=== PATIENT | female | born 1960 | race Caucasian/White ===

== ENCOUNTER → 2019-07-20 | Outpatient (CLI) | payer OTHER ==
[2019-07-20 09:38] LABS: BASOPHILS ABSOLUTE AUTO 0.04 K/mm3 (0.00-0.23); BASOPHILS PERCENT AUTO 0 % (0-2); EOSINOPHILS ABSOLUTE AUTO 0.09 K/mm3 (0.00-0.68); EOSINOPHILS PERCENT AUTO 1 % (0-6); Hematocrit 47.9 % (33.0-51.0); Hemoglobin 15.6 g/dL (11.5-16.0); IMMATURE GRAN ABSOLUTE AUTO 0.03 K/mm3 (0.00-0.10); IMMATURE GRAN PERCENT AUTO 0 % (0-1); LYMPHOCYTES ABSOLUTE AUTO 1.35 K/mm3 (0.84-5.20); LYMPHOCYTES PERCENT AUTO 15 % (21-46); MONOCYTES ABSOLUTE AUTO 0.62 K/mm3 (0.16-1.47); MONOCYTES PERCENT AUTO 7 % (4-13); Mean Corpuscular HGB 28.7 pg (26.0-34.0); Mean Corpuscular HGB Conc 32.6 g/dL (31.5-36.5); Mean Corpuscular Volume 88 fL (80-100); Mean Platelet Volume 8.9 fL (9.1-12.4); NEUTROPHILS ABSOLUTE AUTO 7.14 K/mm3 (1.96-9.15); NEUTROPHILS PERCENT AUTO 77 % (41-73); Platelet Count 261 K/mm3 (150-400); RDW Coefficient Variation 12.9 % (11.7-14.2); RDW Standard Deviation 41.5 fL (35.1-46.3); Red Blood Cell Count 5.44 M/mm3 (3.80-5.20); White Blood Cell Count 9.27 K/mm3 (4.00-11.30)
[2019-07-20 09:59] LABS: Alanine Aminotransfer (ALT/SGP 30 U/L (12-78); Albumin, Blood 4.2 g/dL (3.4-5.0); Alk Phos 61 U/L (50-136); Anion Gap 7 mmol/L (6-16); Aspartate Aminotrans (AST/SGOT 17 U/L (12-37); Bilirubin, Total 0.6 mg/dL (0.1-1.0); Blood Urea Nitrogen 19 mg/dL (8-24); Bun/Creatinine Ratio 27.1 (12.0-20.0); CO2, Blood 23 mmol/L (21-32); Calcium, Blood 9.6 mg/dL (8.5-10.1); Chloride, Blood 108 mmol/L (98-108); Glomerular Filtration Rate >60 (60-); Glucose, Blood 128 mg/dL (70-99); Potassium, Blood 3.9 mmol/L (3.5-5.5); Sodium, Blood 138 mmol/L (136-145); Total Protein, Blood 8.2 g/dL (6.4-8.2)
== END | disposition home or self-care (01) ==
LOC: LAB SHORT 09:27 → LAB 09:27
PROVIDERS: Nurse Practitioner Family
DX: R10.84 Generalized abdominal pain (principal); R11.10 Vomiting, unspecified
CPT/HCPCS: 80053; 83690; 85025

== ENCOUNTER → 2024-06-13 | Outpatient (CLI) | payer OTHER ==
[~2024-06-13] MED LIST: ACET500; Calcium Carbon500 MG; Citrucel500 MG; MULVITA; POTASSIUM GLU2.5 MEQ; PROBIOTIC1 EA14; QUERCETIN500 MG; SIME40L; VITAMIN D310 MC4; Vitamin B-1250 MC1
== END ==
LOC: LAB SHORT 19:20 → LAB 19:20
DX: L08.9 Local infection of the skin and subcutaneous tissue, unspecified (principal)
CPT/HCPCS: 87070; 87205

== ENCOUNTER 2024-06-15 15:04 | Inpatient (IN) | payer OTHER ==
[~2024-06-15] VITALS: Ht 167.6 cm; Wt 91.0 kg
[~2024-06-15 15:04] MED LIST changes: -Calcium Carbon500 MG; +Calcium Carbon500 MG PO; -Citrucel500 MG; +Citrucel500 MG PO; -MULVITA; +MULVITA PO; -POTASSIUM GLU2.5 MEQ; +POTASSIUM GLU2.5 MEQ PO; -PROBIOTIC1 EA14; +PROBIOTIC1 EA14 PO; -QUERCETIN500 MG; +QUERCETIN500 MG PO; -SIME40L; +SIME40L PO; -VITAMIN D310 MC4; +VITAMIN D310 MC4 PO; -Vitamin B-1250 MC1; +Vitamin B-1250 MC1 PO
[2024-06-15 16:36] LABS: BASOPHILS ABSOLUTE AUTO 0.04 K/mm3 (0.00-0.23); BASOPHILS PERCENT AUTO 0 % (0-2); EOSINOPHILS ABSOLUTE AUTO 0.29 K/mm3 (0.00-0.68); EOSINOPHILS PERCENT AUTO 3 % (0-6); Hematocrit 43.6 % (33.0-51.0); Hemoglobin 14.7 g/dL (11.5-16.0); IMMATURE GRAN ABSOLUTE AUTO 0.03 K/mm3 (0.00-0.10); IMMATURE GRAN PERCENT AUTO 0 % (0-1); LYMPHOCYTES ABSOLUTE AUTO 1.46 K/mm3 (0.84-5.20); LYMPHOCYTES PERCENT AUTO 15 % (21-46); MONOCYTES ABSOLUTE AUTO 0.58 K/mm3 (0.16-1.47); MONOCYTES PERCENT AUTO 6 % (4-13); Mean Corpuscular HGB 29.8 pg (26.0-34.0); Mean Corpuscular HGB Conc 33.7 g/dL (31.5-36.5); Mean Corpuscular Volume 88 fL (80-100); Mean Platelet Volume 9.1 fL (9.1-12.4); NEUTROPHILS ABSOLUTE AUTO 7.37 K/mm3 (1.96-9.15); NEUTROPHILS PERCENT AUTO 76 % (41-73); Platelet Count 251 K/mm3 (150-400); RDW Coefficient Variation 12.9 % (11.7-14.2); Red Blood Cell Count 4.94 M/mm3 (3.80-5.20); White Blood Cell Count 9.77 K/mm3 (4.00-11.30)
[2024-06-15 17:04] LABS: C-REACTIVE PROTEIN, EXT RANGE 0.786 mg/dL (0.000-0.300)
[2024-06-15 17:07] LABS: Bun/Creatinine Ratio 19.3 (12.0-20.0); Calcium, Blood 9.4 mg/dL (8.5-10.1); Creatinine, Blood 0.78 mg/dL (0.40-1.00); Potassium, Blood 4.2 mmol/L (3.5-5.5)
[2024-06-15] MEDS ORDERED: Ondansetron HCl 2 MG / ML 2ML Vial IV ONE (20:50)
[2024-06-15] MEDS ORDERED: Morphine Sulfate 4 MG/1 ML Injection IV ONE (20:50)
[2024-06-15] MEDS ORDERED: OxyCODONE 5 mg/Acetamin 325 mg TABLET PO PRN (21:20)
[2024-06-15] MEDS ORDERED: Ondansetron HCl 2 MG / ML 2ML Vial IV PRN (21:20)
[2024-06-15] MEDS ORDERED: NS 1,000 ML IV SCH (21:25)
[2024-06-15] MEDS ORDERED: Cefepime HCl 2,000 MG in NS 100 ML IV SCH (21:43)
[2024-06-15] MEDS ORDERED: Vancomycin HCL 1,750 MG in NS 500 ML IV ONE (21:45)
[2024-06-15] MEDS ORDERED: HydrALAZINE HCl 25 MG Tab PO PRN (22:35)
[2024-06-15 22:54] VITALS: BP 144/81
[2024-06-16 04:14] VITALS: BP 122/90
--- NOTE | 2024-06-16 05:40 | NUR ---
ADMIT FROM ER @ 2250 ACCOMPAINED BY STAFF. ORIENTED TO ROOM AND CALL LIGHT SYSTEM. L THUMB OSTEOMYLITIS. IND PERFORMED IN ER ON L THUMB, WRAPED WITH GAUZE AND KERLIX. BLOOD AND WOUND DRAINAGE CULTURES PENDING. AAOX4, NEEDS HELP WITH IV POLE TO BR. INDEPENDENT IN BR. L THUMB IS PAINFUL, SEE MAR FOR INTERVENTIONS. NO ACUTE NEEDS OVERNIGHT
[2024-06-16 05:56] LABS: Bun/Creatinine Ratio 21.5 (12.0-20.0); Calcium, Blood 8.3 mg/dL (8.5-10.1); Creatinine, Blood 0.7 mg/dL (0.40-1.00); Potassium, Blood 4.3 mmol/L (3.5-5.5)
[2024-06-16 06:49] LABS: International Normalized Ratio 0.9; Prothrombin Time Results 9.7 Sec (9.7-11.5)
[2024-06-16 07:17] VITALS: BP 137/70
[2024-06-16] MEDS ORDERED: Enoxaparin 40 MG/0.4 ML SYR SC SCH (09:00)
[2024-06-16] MEDS ORDERED: Docusate Sodium 100 MG Cap PO SCH (09:00)
[2024-06-16] MEDS ORDERED: Docusate Sodium/Senna 1 Tab PO SCH (09:00)
[2024-06-16] MEDS ORDERED: Lactobacil 2-S.Thermo-Bifido 1 1 Cap PO SCH (09:00)
[2024-06-16] MEDS ORDERED: Vancomycin HCL 1,250 MG in NS 250 ML IV SCH (11:00)
[2024-06-16] MEDS ORDERED: Simethicone 80 MG Chew PO PRN (12:35)
[2024-06-16 17:32] VITALS: BP 189/81
--- NOTE | 2024-06-16 17:53 | NUR ---
SHIFT SUMMARY: PATIENT A/OX4, PLEASANT AND COOPERATIVE c CARE. PATIENT REPORTS PAIN TO L THUMB, MEDICATED PER EMAR T/O SHIFT c GOOD EFFECT. PATIENT L THUMB DRESSING CHANGED BY DR. BEACH THIS PM. PATIENT MEDICATED X1 FOR NAUSEA AND X1 FOR GAS DISCOMFORT c GOOD EFFECT. PATIENT HAS MOD APPETITE, CONTINENT OF BLADDER, AMBULATES TO BATHROOM INDEPENDENTLY T/O SHIFT. PATIENT AMBULATED IN HALLWAY X2 THIS SHIFT. PATIENT RECEIVED IV ABX/SCHEDULED MEDS PER EMAR. VITAL SIGNS REVIEWED. CALL LIGHT IN REACH.
[2024-06-16 18:13] VITALS: BP 168/95
[2024-06-16 19:32] VITALS: BP 160/87
--- NOTE | 2024-06-17 03:16 | NUR ---
SHIFT SUMMARY NO ACUTE EVENTS DURING THIS SHIFT. @BEGINNING OF THIS SHIFT, PT REPORTS VERY PAINFUL LEFT THUMB/HAND. PER PT REQUEST, MEDICATED Q4HRS WITH PRN PO 10MG PERCOCET ORDERED. GOOD EFFECTIVNESS PER PT REPORT. PT WAS EXPERIENCING BREAKTHROUGH PAIN, AND NOW CAUTIOUS/AFRAID OF IT. EDUCATED ON PAIN MANAGMENT AND NON-PHARMACOLOGICAL INTERVENTIONS. PT IS A/O X4, VERY PLEASANT AND COOPERATIVE WITH CARE. INDEPENDENT W/I THE HOSPITAL ROOM. DRESSING FOR LEFT THUMB WAS CHANGED BY YESTERDAY 06/16/24. C/D/I. BED AT THE LOWEST POSITION, CALL LIGHT W/I REACH. PT IS ABLE TO MAKE HER NEEDS KNOWN.
[2024-06-17 04:23] VITALS: BP 120/71
[2024-06-17 07:32] VITALS: BP 144/81
[2024-06-17] MEDS ORDERED: FentaNYL Citrate 50 MCG/ML 2 ML Injection IV PRN (10:00)
[2024-06-17] MEDS ORDERED: NS 250 ML IV PRN (10:40)
[2024-06-17 10:54] LABS: Vancomycin, Trough 16.9 ug/mL (5.0-10.0)
[2024-06-17] MEDS ORDERED: HYDROmorphone HCl 0.5 MG/0.5 ML SYR IV PRN (15:05)
[2024-06-17 16:21] VITALS: BP 168/92
--- NOTE | 2024-06-17 16:45 | NUR ---
SHIFT SUMMARY: PATIENT A/OX4, PLEASANT AND COOPERATIVE c CARE. PATIENT REPORTS PAIN TO L THUMB, MEDICATED PER EMAR c GOOD EFFECT. PATIENT REPORTS PREMEDICATED c 1 MG OF IV DILAUDID, STILL PAINFUL BUT MORE TOLERABLE c DRESSING CHANGED. L THUMB DRESSING CHANGED PER ORDER X2 THIS SHIFT. PATIENT HAS MOD APPETITE, CONTINENT OF BOWEL/BLADDER, AMBULATES TO BATHROOM INDEPENDENTLY. PATIENT RECEIVED IV ABX/SCHEDULED MEDS PER EMAR. VITAL SIGNS REVIEWED. CALL LIGHT IN REACH.
[2024-06-17 19:28] VITALS: BP 147/78
--- NOTE | 2024-06-17 20:33 | NUR ---
WOUND CARE/DRESSING CHANGE NOTE @1999 DR BEACH BY THE BEDSIDE. DR'S ORDER IS NO MORE PACKING THE LEFT THUMB WOUND. SOAK 20 MINS IN LUKE WARM WATER. USE 4X4 AND GAUZE FOR DRESSING. COMPLETED @1999. ORDER IS 4X /24HR PERIOD FOR SOAK AND DRESSING CHANGE. PT REPORTS EXPERIENCING PAIN R/T PROCEDURE 07/19. MEDICATED AFTER THE SOAKING ORDERED WITH PERCOCET PO PRN 5MG. PT REPORTS GOOD EFFECTIVNESS.
--- NOTE | 2024-06-18 02:04 | NUR ---
@0045 WOUND CARE COMPLETED. SOAKED THE LEFT THUMB IN LUKE WARM WATER FOR 20 MINUTES. PAT DRIED. APPLIED 4X4 AND WRAPPED WITH GAUZE ROLL. PT TOLERATED WELL. MEDICATED PER EMAR ORDERED PRIOR TO WOUND CARE. PT REPORTS EFFECTIVE.
--- NOTE | 2024-06-18 03:05 | NUR ---
SHIFT SUMMARY NO ACUTE EVENTS DURING THIS SHIFT. DRESSING CHANGES COMPLETED Q6HRS ORDERED. SOAKING, AND REDRESSING. PER DR. BEACH NO PACKING. MEDICATED PER EMAR PRIOR TO DRESSING CHANGES. PT IS PLEASANT, A/O X4, COOPERATIVE WITH CARE. BED AT THE LOWEST POSITION, CALL LIGHT W/I REACH.
[2024-06-18 04:09] VITALS: BP 130/60
[2024-06-18 07:36] VITALS: BP 157/83
[2024-06-18] MEDS ORDERED: AmLODIPine Besylate 5 MG Tab PO SCH (09:00)
--- NOTE | 2024-06-18 10:27 | NUR ---
pt sitting up on side of bed a/ox4, pleasant and cooperative with care, follows commands well, denies pain at this time, lungs are clear t/o, resp even and unlabored, no cough noted, on r/a, hrr, no edema noted, ppp+2, cap refill <3 sec, vs stable, afebrile, piv to lfa site is clear and patent, btx4, abd flat soft nontender, voids without diff, up ad terra in room, zeina, call light in reach.
[2024-06-18 17:30] VITALS: BP 166/95
--- NOTE | 2024-06-18 18:45 | NUR ---
pt up ad terra in her room, did not require pain meds, spouce in room most of the day, no acute changes this shift. call light in reach.
[2024-06-18 19:33] VITALS: BP 178/96
[2024-06-18] MEDS ORDERED: Polyethylene Glycol 3350 17 gm PO ONE (23:20)
--- NOTE | 2024-06-18 23:26 | NUR ---
NEW T-ORDER FROM THE ON-CALL HOSPITALIST RECEIVED: MIRALAX PO BID. [id number] MIRALAX PO NOW. ENTERED TO [employer] SEE EMAR.
[2024-06-18 23:40] VITALS: BP 162/84
[2024-06-19] MEDS ORDERED: Sod Phosphate/Sod Biphosphate 132 ML BTL PR PRN (02:55)
[2024-06-19] MEDS ORDERED: Lactulose 20 GM/30 ML UDC PO PRN (02:55)
--- NOTE | 2024-06-19 02:59 | NUR ---
NEW T-ORDERS RECEIVED FROM THE ON-CALL HOSPITALIST : - FLEET ENEMA QD PRN - DUCOLAX QD SUPPOSITORY - PREPARATION H FOR HEMORRHOIDS TOPICAL BID PRN - LACTULOSE 30GM BID PRN FOR CONSTIPATION, UP TO 6 DOSES. ENTERED TO [employer], SEE EMAR.
[2024-06-19] MEDS ORDERED: Phenyleph/Mineral Oil/Petrolat 1 APPLIC/57 GM Tube PR PRN (03:00)
[2024-06-19] MEDS ORDERED: Bisacodyl 10 MG Supp PR PRN (03:10)
[2024-06-19] MEDS ORDERED: Sod Phosphate/Sod Biphosphate 132 ML BTL PR ONE (03:25)
--- NOTE | 2024-06-19 04:06 | NUR ---
SHIFT SUMMARY DURING EARLY AM HRS, PT C/O OF CONSTIPATION, STOOL IMPACTED D/T HEMRRHOIDS, PER PT REPORT. NEW ORDERS RECEIVED FROM THE ON-CALL HOSPITALIST (SEE PREVIOUS NOTE). LACTULOSE AND FLEET ENEMA ADMINISTERED ORDERED. PT CURRENTLY TRYING TO HAVE A BM, MOANING WITH DISCOMFORT. PT REPORTS CONSTIPATION IS R/T OPIOID PAIN MEDICATION, THAT SHE IS CURRENTLY TAKING FOR LEFT THUMB OSTEOMYELITIS. PT RATES PAIN 5/10 ON LEFT THUMB. LEFT THUMB SOAKED FOR 20MINUTES EACH TIME, AND DRESSING CHANGES COMPLETED ORDERED Q6HRS. NEW MIRALAX ORDER WAS RECEIVED FROM THE ON-CALL HOSPITALIST DURING THIS SHIFT, AND A DOSE WAS ADMINISTERED ORDERED. PT IS A/O X4, ABLE TO MAKE HER NEEDS KNOWN AND COOPERATIVE WITH CARE. BED AT THE LOWEST POSITION, CALL LIGHT W/I REACH.
[2024-06-19 04:45] VITALS: BP 142/82
[2024-06-19 06:33] LABS: BASOPHILS ABSOLUTE AUTO 0.07 K/mm3 (0.00-0.23); BASOPHILS PERCENT AUTO 1 % (0-2); EOSINOPHILS ABSOLUTE AUTO 0.31 K/mm3 (0.00-0.68); EOSINOPHILS PERCENT AUTO 4 % (0-6); Hematocrit 40.9 % (33.0-51.0); Hemoglobin 13.7 g/dL (11.5-16.0); IMMATURE GRAN ABSOLUTE AUTO 0.03 K/mm3 (0.00-0.10); IMMATURE GRAN PERCENT AUTO 0 % (0-1); LYMPHOCYTES ABSOLUTE AUTO 1.06 K/mm3 (0.84-5.20); LYMPHOCYTES PERCENT AUTO 13 % (21-46); MONOCYTES ABSOLUTE AUTO 0.67 K/mm3 (0.16-1.47); MONOCYTES PERCENT AUTO 8 % (4-13); Mean Corpuscular HGB 29.3 pg (26.0-34.0); Mean Corpuscular HGB Conc 33.5 g/dL (31.5-36.5); Mean Corpuscular Volume 88 fL (80-100); Mean Platelet Volume 9.3 fL (9.1-12.4); NEUTROPHILS ABSOLUTE AUTO 6.05 K/mm3 (1.96-9.15); NEUTROPHILS PERCENT AUTO 74 % (41-73); Platelet Count 232 K/mm3 (150-400); RDW Coefficient Variation 12.5 % (11.7-14.2); RDW Standard Deviation 40.2 fL (35.1-46.3); Red Blood Cell Count 4.67 M/mm3 (3.80-5.20); White Blood Cell Count 8.19 K/mm3 (4.00-11.30)
[2024-06-19 07:19] LABS: Bun/Creatinine Ratio 25.2 (12.0-20.0); Calcium, Blood 9.3 mg/dL (8.5-10.1); Creatinine, Blood 0.6 mg/dL (0.40-1.00); Magnesium, Blood 2.4 mg/dL (1.6-2.4); Potassium, Blood 3.6 mmol/L (3.5-5.5)
[2024-06-19 07:22] VITALS: BP 145/82
[2024-06-19] MEDS ORDERED: Polyethylene Glycol 3350 17 gm PO SCH (09:00)
[2024-06-19] MEDS ORDERED: CefTRIAXone Sodium 2,000 MG in NS 100 ML IV SCH (09:00)
[2024-06-19 10:45] LABS: Vancomycin, Trough 13.8 ug/mL (5.0-10.0)
[2024-06-19] MEDS ORDERED: Vancomycin HCL 1,500 MG in NS 250 ML IV SCH (12:00)
[2024-06-19 15:49] VITALS: BP 171/84
--- NOTE | 2024-06-19 15:57 | NUR ---
SHIFT SUMMARY PATIENT REPORTS MILD HEAD ACHE. DENIES PAIN IN LEFT HAND. DECLINES PAIN MEDICATION. GIVEN ICE PACK. DENIES NAUSEA AND SHORTNESS OF BREATH. UP INDEPENDENT IN ROOM. PICC LINE PLACED TODAY. BOWEL CARE GIVEN ON NOC SHIFT. LOOSE STOOLS THIS MORNING. AM BOWEL CARE HELD. POOR APPETITE TODAY. WOUND CARE DONE Q6. DRESSING C/D/I. PLEASANT AND COOPERATIVE WITH CARE.
[2024-06-19] MEDS ORDERED: Acetaminophen 325 MG TABLET PO PRN (16:25)
[2024-06-19 19:22] VITALS: BP 150/88
[2024-06-19] MEDS ORDERED: Hydrocortisone 2.5% Cream 30 gm Tube PR SCH (21:00)
--- NOTE | 2024-06-20 03:30 | NUR ---
SHIFT SUMMARY NO ACUTE EVENTS DURING THIS SHIFT. @HS, PT REPORTS MILD H/A. DECLINES NEED FOR ANALGESICS. DRESSING CHANGE AND SOAK COMPLETED DURING THIS SHIFT. IV VANCO ADMINISTERED ORDERED. BED AT THE LOWEST POSITION, CALL LIGHT IN REACH. PT IS A/O X4, ABLE TO MAKE HER NEEDS KNOWN AND COOPERATIVE WITH CARE.
[2024-06-20 05:27] VITALS: BP 141/88
[2024-06-20 07:37] VITALS: BP 137/88
[2024-06-20 08:39] LABS: Hematocrit 41.1 % (33.0-51.0); Hemoglobin 13.7 g/dL (11.5-16.0); Mean Corpuscular HGB 29.5 pg (26.0-34.0); Mean Corpuscular HGB Conc 33.3 g/dL (31.5-36.5); Mean Corpuscular Volume 89 fL (80-100); Mean Platelet Volume 9.4 fL (9.1-12.4); Platelet Count 235 K/mm3 (150-400); RDW Coefficient Variation 12.6 % (11.7-14.2); RDW Standard Deviation 40.6 fL (35.1-46.3); Red Blood Cell Count 4.64 M/mm3 (3.80-5.20); White Blood Cell Count 7.27 K/mm3 (4.00-11.30)
[2024-06-20 08:57] LABS: Albumin, Blood 3.6 g/dL (3.4-5.0); Bilirubin, Total 0.7 mg/dL (0.1-1.0); Bun/Creatinine Ratio 18.7 (12.0-20.0); Calcium, Blood 9.3 mg/dL (8.5-10.1); Creatinine, Blood 0.69 mg/dL (0.40-1.00); Globulin, Blood 3.5 g/dL (2.2-4.0); Magnesium, Blood 2.2 mg/dL (1.6-2.4); Phosphorus, Blood 3.4 mg/dL (2.5-4.9); Potassium, Blood 4.1 mmol/L (3.5-5.5); Total Protein, Blood 7.1 g/dL (6.4-8.2)
[2024-06-20] MEDS ORDERED: DAPTOmycin 350 MG in NS 50 ML IV SCH (09:00)
[2024-06-20] MEDS ORDERED: AMLO5 PO ×2 (12:19)
[2024-06-20] MEDS ORDERED: CUBICIN RF500 M1 IV ×2 (12:20)
[2024-06-20] MEDS ORDERED: CEFTRIAXONE2 G1 IV ×2 (12:20)
[2024-06-20] MEDS ORDERED: HYDCOR2.5C PR ×2 (12:21)
[2024-06-20] MEDS ORDERED: Percocet 5-3251 EACH PO ×2 (12:22)
--- NOTE | 2024-06-20 14:23 | NUR ---
DISCHARGE NOTE PATIENT A/OX4, ABLE TO MAKE NEEDS KNONW. PLEASANT AND COOPERATIVE WITH STAFF. DRESSING CHANGES TO LEFT THUMB PROVIDED PER ORDER. IV ANTIBIOTICS INFUSED PRIOR TO DISCHARGE. PICC LINE DRESSING CHANGES. PATIENT AND SPOUSE EDUCATED REGARDING DISCHARGE MEDICATIONS, HOSPITAL FOLLOW UP APPOINTMENTS, AND [facility] APPOINTMENTS. PATIENT AND SPOUSE AGREEABLE TO DISCHARGE PLAN. NO OTHER CONCERNS AT THIS TIME. PATIENT DENIED NEED FOR ASSISTANCE OUT OF FACILITY. LEFT WITH ALL BELONGINGS IN HAND.
== END 2024-06-20 14:10 | disposition home or self-care (01) | DRG 513 ==
LOC: ER 15:04 → ERHOLD 21:17 → MEDS 21:17
PROVIDERS: Hospitalist; Nurse Practitioner Acute Care; Student in an Organized Health Care Education/Training Program; ADMIT Internal Medicine
PROC: 0PDS0ZZ Extraction of Left Thumb Phalanx, Open Approach (ICD-10-PCS; principal; 2024-06-15)
DX: M86.142 Other acute osteomyelitis, left hand (principal); E87.1 Hypo-osmolality and hyponatremia; L02.512 Cutaneous abscess of left hand; B96.20 Unspecified Escherichia coli [E. coli] as the cause of diseases classified elsewhere; I10 Essential (primary) hypertension; B95.62 Methicillin resistant Staphylococcus aureus infection as the cause of diseases classified elsewhere; Z88.8 Allergy status to other drugs, medicaments and biological substances; Z88.1 Allergy status to other antibiotic agents; Z91.040 Latex allergy status
CPT/HCPCS: 26011; 36415; 36569; 73140; 80048; 80053; 80202; 83036; 83605; 83735; 84100; 85025; 85027; 85610; 85651; 86140; 87040; 87070; 87075; 87077; 87186; 87205; 99285-25; A9270; C1751; J0692; J0696; J0878; J1171; J1650; J2270; J2405; J3010; J3370; J7030; J7040; J7050

== ENCOUNTER 2024-06-21 04:29 | Day surgery (SDC) | payer OTHER ==
[~2024-06-21 04:29] MED LIST changes: +AMLO5 PO; +CEFTRIAXONE2 G1 IV; +CUBICIN RF500 M1 IV; +HYDCOR2.5C PR; +Percocet 5-3251 EACH PO
[2024-06-21] MEDS ORDERED: DAPTOmycin 350 MG in NS 50 ML IV SCH (06:00)
[2024-06-21] MEDS ORDERED: CefTRIAXone Sodium 2,000 MG in NS 100 ML IV SCH (10:15)
[2024-06-21 10:30] VITALS: BP 131/91
== END 2024-06-21 11:10 | disposition home or self-care (01) ==
LOC: ATC 04:29
DX: M86.142 Other acute osteomyelitis, left hand (principal); I10 Essential (primary) hypertension; E87.1 Hypo-osmolality and hyponatremia; Z88.8 Allergy status to other drugs, medicaments and biological substances; Z91.040 Latex allergy status
CPT/HCPCS: 96365; 96368; J0696; J0878

== ENCOUNTER 2024-06-22 03:56 | Day surgery (SDC) | payer OTHER ==
[2024-06-22] MEDS ORDERED: DAPTOmycin 350 MG in NS 50 ML IV SCH (06:00)
[2024-06-22] MEDS ORDERED: CefTRIAXone Sodium 2,000 MG in NS 100 ML IV SCH (06:00)
[2024-06-22 10:24] VITALS: BP 158/97
== END 2024-06-22 10:48 | disposition home or self-care (01) ==
LOC: ATC 03:56
DX: M86.142 Other acute osteomyelitis, left hand (principal); I10 Essential (primary) hypertension; Z88.1 Allergy status to other antibiotic agents; Z88.4 Allergy status to anesthetic agent; Z91.040 Latex allergy status
CPT/HCPCS: 96365; 96368; J0696; J0878

== ENCOUNTER 2024-06-23 04:47 | Day surgery (SDC) | payer OTHER ==
[2024-06-23] MEDS ORDERED: DAPTOmycin 350 MG in NS 50 ML IV SCH (06:00)
[2024-06-23] MEDS ORDERED: CefTRIAXone Sodium 2,000 MG in NS 100 ML IV SCH (06:00)
[2024-06-23 10:04] VITALS: BP 136/96
== END 2024-06-23 10:35 | disposition home or self-care (01) ==
LOC: ATC 04:47
DX: M86.142 Other acute osteomyelitis, left hand (principal); I10 Essential (primary) hypertension; Z88.1 Allergy status to other antibiotic agents; Z91.040 Latex allergy status
CPT/HCPCS: 96365; 96368; J0696; J0878

== ENCOUNTER 2024-06-24 03:54 | Day surgery (SDC) | payer OTHER ==
[2024-06-24] MEDS ORDERED: DAPTOmycin 350 MG in NS 50 ML IV SCH (06:00)
[2024-06-24] MEDS ORDERED: CefTRIAXone Sodium 2,000 MG in NS 100 ML IV SCH (06:00)
[2024-06-24 10:14] VITALS: BP 160/97
== END 2024-06-24 10:35 | disposition home or self-care (01) ==
LOC: ATC 03:54
DX: M86.142 Other acute osteomyelitis, left hand (principal); E87.1 Hypo-osmolality and hyponatremia; I10 Essential (primary) hypertension; Z88.1 Allergy status to other antibiotic agents
CPT/HCPCS: 96365; 96368; J0696; J0878

== ENCOUNTER 2024-06-25 02:15 | Day surgery (SDC) | payer OTHER ==
[2024-06-25] MEDS ORDERED: DAPTOmycin 350 MG in NS 50 ML IV SCH (06:00)
[2024-06-25] MEDS ORDERED: CefTRIAXone Sodium 2,000 MG in NS 100 ML IV SCH (06:00)
[2024-06-25 10:28] VITALS: BP 144/93
== END 2024-06-25 10:44 | disposition home or self-care (01) ==
LOC: ATC 02:15
DX: M86.142 Other acute osteomyelitis, left hand (principal); I10 Essential (primary) hypertension; Z88.1 Allergy status to other antibiotic agents; Z88.4 Allergy status to anesthetic agent; Z91.040 Latex allergy status
CPT/HCPCS: 96365; 96368; J0696; J0878

== ENCOUNTER 2024-06-26 00:25 | Day surgery (SDC) | payer OTHER ==
[2024-06-26] MEDS ORDERED: CefTRIAXone Sodium 2,000 MG in NS 100 ML IV SCH (06:00)
[2024-06-26] MEDS ORDERED: DAPTOmycin 350 MG in NS 50 ML IV SCH (06:00)
[2024-06-26 10:36] VITALS: BP 128/94
== END 2024-06-26 10:58 | disposition home or self-care (01) ==
LOC: ATC 00:25
DX: M86.142 Other acute osteomyelitis, left hand (principal); I10 Essential (primary) hypertension; Z88.8 Allergy status to other drugs, medicaments and biological substances; Z91.040 Latex allergy status
CPT/HCPCS: 96365; 96368; J0696; J0878

== ENCOUNTER 2024-06-27 01:59 | Day surgery (SDC) | payer OTHER ==
[2024-06-27] MEDS ORDERED: CefTRIAXone Sodium 2,000 MG in NS 100 ML IV SCH (06:00)
[2024-06-27] MEDS ORDERED: DAPTOmycin 350 MG in NS 50 ML IV SCH (06:00)
[2024-06-27 10:19] VITALS: BP 141/95
[2024-06-27 11:43] LABS: BASOPHILS ABSOLUTE AUTO 0.08 K/mm3 (0.00-0.23); BASOPHILS PERCENT AUTO 1 % (0-2); EOSINOPHILS ABSOLUTE AUTO 0.37 K/mm3 (0.00-0.68); EOSINOPHILS PERCENT AUTO 5 % (0-6); Hematocrit 41.9 % (33.0-51.0); IMMATURE GRAN ABSOLUTE AUTO 0.04 K/mm3 (0.00-0.10); IMMATURE GRAN PERCENT AUTO 1 % (0-1); LYMPHOCYTES PERCENT AUTO 21 % (21-46); MONOCYTES ABSOLUTE AUTO 0.56 K/mm3 (0.16-1.47); MONOCYTES PERCENT AUTO 8 % (4-13); Mean Corpuscular HGB 29.7 pg (26.0-34.0); Mean Corpuscular HGB Conc 33.4 g/dL (31.5-36.5); Mean Corpuscular Volume 89 fL (80-100); Mean Platelet Volume 9.6 fL (9.1-12.4); NEUTROPHILS ABSOLUTE AUTO 4.51 K/mm3 (1.96-9.15); NEUTROPHILS PERCENT AUTO 64 % (41-73); Platelet Count 276 K/mm3 (150-400); RDW Coefficient Variation 12.4 % (11.7-14.2); RDW Standard Deviation 40.7 fL (35.1-46.3); Red Blood Cell Count 4.72 M/mm3 (3.80-5.20); White Blood Cell Count 7.06 K/mm3 (4.00-11.30)
[2024-06-27 11:54] LABS: Albumin, Blood 3.6 g/dL (3.4-5.0); Bilirubin, Total 0.3 mg/dL (0.1-1.0); Bun/Creatinine Ratio 25.3 (12.0-20.0); Calcium, Blood 9.2 mg/dL (8.5-10.1); Creatinine, Blood 0.63 mg/dL (0.40-1.00); Globulin, Blood 3.7 g/dL (2.2-4.0); Potassium, Blood 4.1 mmol/L (3.5-5.5); Total Protein, Blood 7.3 g/dL (6.4-8.2)
== END 2024-06-27 10:35 | disposition home or self-care (01) ==
LOC: ATC 01:59
PROVIDERS: Hospitalist
DX: M86.9 Osteomyelitis, unspecified (principal); I10 Essential (primary) hypertension; Z88.1 Allergy status to other antibiotic agents
CPT/HCPCS: 80053; 85025; 96365; 96368; J0696; J0878

== ENCOUNTER 2024-06-28 01:07 | Day surgery (SDC) | payer OTHER ==
[2024-06-28] MEDS ORDERED: CefTRIAXone Sodium 2,000 MG in NS 100 ML IV SCH (06:00)
[2024-06-28] MEDS ORDERED: DAPTOmycin 350 MG in NS 50 ML IV SCH (06:00)
[2024-06-28 10:10] VITALS: BP 132/88
== END 2024-06-28 10:36 | disposition home or self-care (01) ==
LOC: ATC 01:07
DX: M86.142 Other acute osteomyelitis, left hand (principal); I10 Essential (primary) hypertension; Z88.1 Allergy status to other antibiotic agents
CPT/HCPCS: 96365; 96368; J0696; J0878

== ENCOUNTER 2024-06-29 03:43 | Day surgery (SDC) | payer OTHER ==
[2024-06-29] MEDS ORDERED: CefTRIAXone Sodium 2,000 MG in NS 100 ML IV SCH (06:00)
[2024-06-29] MEDS ORDERED: DAPTOmycin 350 MG in NS 50 ML IV SCH (06:00)
[2024-06-29 10:04] VITALS: BP 131/96
== END 2024-06-29 10:29 | disposition home or self-care (01) ==
LOC: ATC 03:43
DX: M86.142 Other acute osteomyelitis, left hand (principal); I10 Essential (primary) hypertension; Z88.1 Allergy status to other antibiotic agents; Z88.8 Allergy status to other drugs, medicaments and biological substances
CPT/HCPCS: 96365; 96368; J0696; J0878

== ENCOUNTER 2024-06-30 10:04 | Day surgery (SDC) | payer OTHER ==
[~2024-06-30 10:04] MED LIST changes: +CefTRIAXone Sodium 2,000 MG in NS 100 ML IV SCH; +DAPTOmycin 350 MG in NS 50 ML IV SCH
[2024-06-30 10:12] VITALS: BP 130/90
== END 2024-06-30 10:37 | disposition home or self-care (01) ==
LOC: ATC 10:04
DX: M86.142 Other acute osteomyelitis, left hand (principal); I10 Essential (primary) hypertension; Z88.1 Allergy status to other antibiotic agents
CPT/HCPCS: 96365; 96368; J0696; J0878

== ENCOUNTER 2024-07-01 09:53 | Day surgery (SDC) | payer OTHER ==
[2024-07-01 10:04] VITALS: BP 128/93
== END 2024-07-01 10:34 | disposition home or self-care (01) ==
LOC: ATC 09:53
DX: M86.142 Other acute osteomyelitis, left hand (principal); I10 Essential (primary) hypertension; Z88.1 Allergy status to other antibiotic agents
CPT/HCPCS: 96365; 96368; J0696; J0878

== ENCOUNTER 2024-07-02 02:54 | Day surgery (SDC) | payer OTHER ==
[~2024-07-02 02:54] MED LIST changes: -DAPTOmycin 350 MG in NS 50 ML IV SCH
[2024-07-02] MEDS ORDERED: DAPTOmycin 550 MG in NS 50 ML IV SCH (06:00)
[2024-07-02 10:28] VITALS: BP 139/94
== END 2024-07-02 10:51 | disposition home or self-care (01) ==
LOC: ATC 02:54
DX: M86.142 Other acute osteomyelitis, left hand (principal); I10 Essential (primary) hypertension; Z88.1 Allergy status to other antibiotic agents; Z88.8 Allergy status to other drugs, medicaments and biological substances
CPT/HCPCS: 96365; 96368; J0696; J0878

== ENCOUNTER 2024-07-03 03:05 | Day surgery (SDC) | payer OTHER ==
[~2024-07-03 03:05] MED LIST changes: -CefTRIAXone Sodium 2,000 MG in NS 100 ML IV SCH
[2024-07-03] MEDS ORDERED: DAPTOmycin 350 MG in NS 50 ML IV SCH (06:00)
[2024-07-03] MEDS ORDERED: CefTRIAXone Sodium 2,000 MG in NS 100 ML IV SCH (06:00)
[2024-07-03] MEDS ORDERED: DAPTOmycin 500 MG in NS 50 ML IV SCH (09:55)
[2024-07-03 10:05] VITALS: BP 156/94
== END 2024-07-03 10:58 | disposition home or self-care (01) ==
LOC: ATC 03:05
DX: M86.142 Other acute osteomyelitis, left hand (principal); I10 Essential (primary) hypertension; Z88.1 Allergy status to other antibiotic agents; Z88.4 Allergy status to anesthetic agent
CPT/HCPCS: 96365; 96367; J0696; J0878

== ENCOUNTER 2024-07-04 04:51 | Day surgery (SDC) | payer OTHER ==
[2024-07-04] MEDS ORDERED: CefTRIAXone Sodium 2,000 MG in NS 100 ML IV SCH (06:00)
[2024-07-04] MEDS ORDERED: DAPTOmycin 500 MG in NS 50 ML IV SCH (06:00)
[2024-07-04 10:10] VITALS: BP 134/84
[2024-07-04 11:15] LABS: BASOPHILS ABSOLUTE AUTO 0.08 K/mm3 (0.00-0.23); BASOPHILS PERCENT AUTO 1 % (0-2); EOSINOPHILS ABSOLUTE AUTO 0.33 K/mm3 (0.00-0.68); EOSINOPHILS PERCENT AUTO 5 % (0-6); Hematocrit 42.3 % (33.0-51.0); IMMATURE GRAN ABSOLUTE AUTO 0.02 K/mm3 (0.00-0.10); IMMATURE GRAN PERCENT AUTO 0 % (0-1); LYMPHOCYTES ABSOLUTE AUTO 1.33 K/mm3 (0.84-5.20); LYMPHOCYTES PERCENT AUTO 22 % (21-46); MONOCYTES ABSOLUTE AUTO 0.47 K/mm3 (0.16-1.47); MONOCYTES PERCENT AUTO 8 % (4-13); Mean Corpuscular HGB Conc 33.1 g/dL (31.5-36.5); Mean Corpuscular Volume 88 fL (80-100); NEUTROPHILS ABSOLUTE AUTO 3.91 K/mm3 (1.96-9.15); NEUTROPHILS PERCENT AUTO 64 % (41-73); Platelet Count 253 K/mm3 (150-400); RDW Coefficient Variation 12.6 % (11.7-14.2); RDW Standard Deviation 40.7 fL (35.1-46.3); Red Blood Cell Count 4.82 M/mm3 (3.80-5.20); White Blood Cell Count 6.14 K/mm3 (4.00-11.30)
[2024-07-04 11:37] LABS: Albumin, Blood 3.7 g/dL (3.4-5.0); Bilirubin, Total 0.4 mg/dL (0.1-1.0); Bun/Creatinine Ratio 28.2 (12.0-20.0); Calcium, Blood 9.5 mg/dL (8.5-10.1); Creatinine, Blood 0.64 mg/dL (0.40-1.00); Globulin, Blood 3.7 g/dL (2.2-4.0); Potassium, Blood 4.7 mmol/L (3.5-5.5); Total Protein, Blood 7.4 g/dL (6.4-8.2)
== END 2024-07-04 10:38 | disposition home or self-care (01) ==
LOC: ATC 04:51
PROVIDERS: Hospitalist
DX: M86.142 Other acute osteomyelitis, left hand (principal); I10 Essential (primary) hypertension; E87.1 Hypo-osmolality and hyponatremia; Z88.8 Allergy status to other drugs, medicaments and biological substances; Z91.040 Latex allergy status
CPT/HCPCS: 80053; 85025; 96365; 96368; J0696; J0878

== ENCOUNTER 2024-07-05 02:40 | Day surgery (SDC) | payer OTHER ==
[2024-07-05] MEDS ORDERED: DAPTOmycin 500 MG in NS 50 ML IV SCH (06:00)
[2024-07-05] MEDS ORDERED: CefTRIAXone Sodium 2,000 MG in NS 100 ML IV SCH (06:00)
[2024-07-05 10:13] VITALS: BP 150/95
== END 2024-07-05 10:33 | disposition home or self-care (01) ==
LOC: ATC 02:40
DX: M86.142 Other acute osteomyelitis, left hand (principal); I10 Essential (primary) hypertension; Z88.1 Allergy status to other antibiotic agents; Z91.040 Latex allergy status
CPT/HCPCS: 96365; 96368; J0696; J0878

== ENCOUNTER 2024-07-06 04:26 | Day surgery (SDC) | payer OTHER ==
[~2024-07-06 04:26] MED LIST changes: +CefTRIAXone Sodium 2,000 MG in NS 100 ML IV SCH
[2024-07-06] MEDS ORDERED: DAPTOmycin 500 MG in NS 50 ML IV SCH (06:00)
[2024-07-06 10:27] VITALS: BP 142/95
== END 2024-07-06 10:51 | disposition home or self-care (01) ==
LOC: ATC 04:26
DX: M86.142 Other acute osteomyelitis, left hand (principal); I10 Essential (primary) hypertension; Z88.5 Allergy status to narcotic agent; Z88.1 Allergy status to other antibiotic agents
CPT/HCPCS: 96365; 96368; J0696; J0878

== ENCOUNTER 2024-07-07 03:03 | Day surgery (SDC) | payer OTHER ==
[2024-07-07] MEDS ORDERED: DAPTOmycin 500 MG in NS 50 ML IV SCH (06:00)
[2024-07-07 10:10] VITALS: BP 123/86
== END 2024-07-07 10:38 | disposition home or self-care (01) ==
LOC: ATC 03:03
DX: M86.142 Other acute osteomyelitis, left hand (principal); I10 Essential (primary) hypertension; E87.1 Hypo-osmolality and hyponatremia; Z88.8 Allergy status to other drugs, medicaments and biological substances; Z91.040 Latex allergy status
CPT/HCPCS: 96365; 96368; J0696; J0878

== ENCOUNTER 2024-07-08 03:01 | Day surgery (SDC) | payer OTHER ==
[~2024-07-08 03:01] MED LIST changes: -CefTRIAXone Sodium 2,000 MG in NS 100 ML IV SCH
[2024-07-08] MEDS ORDERED: CefTRIAXone Sodium 2,000 MG in NS 100 ML IV SCH (06:00)
[2024-07-08] MEDS ORDERED: DAPTOmycin 500 MG in NS 50 ML IV SCH (06:00)
[2024-07-08 10:19] VITALS: BP 136/96
== END 2024-07-08 10:37 | disposition home or self-care (01) ==
LOC: ATC 03:01
DX: M86.142 Other acute osteomyelitis, left hand (principal); I10 Essential (primary) hypertension; E87.1 Hypo-osmolality and hyponatremia; Z88.8 Allergy status to other drugs, medicaments and biological substances; Z91.040 Latex allergy status
CPT/HCPCS: 96365; 96368; J0696; J0878

== ENCOUNTER 2024-07-09 00:16 | Day surgery (SDC) | payer OTHER ==
[2024-07-09] MEDS ORDERED: DAPTOmycin 500 MG in NS 50 ML IV SCH (06:00)
[2024-07-09] MEDS ORDERED: CefTRIAXone Sodium 2,000 MG in NS 100 ML IV SCH (10:15)
[2024-07-09 10:30] VITALS: BP 133/95
== END 2024-07-09 10:58 | disposition home or self-care (01) ==
LOC: ATC 00:16
DX: M86.142 Other acute osteomyelitis, left hand (principal); I10 Essential (primary) hypertension; E87.1 Hypo-osmolality and hyponatremia
CPT/HCPCS: 96365; 96368; J0696; J0878

== ENCOUNTER 2024-07-10 03:50 | Day surgery (SDC) | payer OTHER ==
[~2024-07-10 03:50] MED LIST changes: +CefTRIAXone Sodium 2,000 MG in NS 100 ML IV SCH
[2024-07-10] MEDS ORDERED: DAPTOmycin 500 MG in NS 50 ML IV SCH (06:00)
[2024-07-10 10:06] VITALS: BP 137/90
== END 2024-07-10 10:29 | disposition home or self-care (01) ==
LOC: ATC 03:50
DX: M86.142 Other acute osteomyelitis, left hand (principal); I10 Essential (primary) hypertension; E87.1 Hypo-osmolality and hyponatremia; Z91.040 Latex allergy status; Z88.8 Allergy status to other drugs, medicaments and biological substances
CPT/HCPCS: 96365; 96368; J0696; J0878

== ENCOUNTER 2024-07-11 01:42 | Day surgery (SDC) | payer OTHER ==
[~2024-07-11 01:42] MED LIST changes: -CefTRIAXone Sodium 2,000 MG in NS 100 ML IV SCH
[2024-07-11] MEDS ORDERED: CefTRIAXone Sodium 2,000 MG in NS 100 ML IV SCH (06:00)
[2024-07-11] MEDS ORDERED: DAPTOmycin 500 MG in NS 50 ML IV SCH (06:00)
[2024-07-11 11:19] LABS: BASOPHILS PERCENT AUTO 2 % (0-2); EOSINOPHILS ABSOLUTE AUTO 0.54 K/mm3 (0.00-0.68); EOSINOPHILS PERCENT AUTO 8 % (0-6); Hematocrit 42.2 % (33.0-51.0); Hemoglobin 14.2 g/dL (11.5-16.0); IMMATURE GRAN ABSOLUTE AUTO 0.04 K/mm3 (0.00-0.10); IMMATURE GRAN PERCENT AUTO 1 % (0-1); LYMPHOCYTES ABSOLUTE AUTO 1.38 K/mm3 (0.84-5.20); LYMPHOCYTES PERCENT AUTO 22 % (21-46); MONOCYTES ABSOLUTE AUTO 0.58 K/mm3 (0.16-1.47); MONOCYTES PERCENT AUTO 9 % (4-13); Mean Corpuscular HGB 29.4 pg (26.0-34.0); Mean Corpuscular HGB Conc 33.6 g/dL (31.5-36.5); Mean Corpuscular Volume 87 fL (80-100); Mean Platelet Volume 9.6 fL (9.1-12.4); NEUTROPHILS ABSOLUTE AUTO 3.76 K/mm3 (1.96-9.15); NEUTROPHILS PERCENT AUTO 59 % (41-73); Platelet Count 240 K/mm3 (150-400); RDW Coefficient Variation 12.8 % (11.7-14.2); RDW Standard Deviation 41.1 fL (35.1-46.3); Red Blood Cell Count 4.83 M/mm3 (3.80-5.20)
[2024-07-11 11:43] LABS: Albumin, Blood 3.7 g/dL (3.4-5.0); Albumin/Globulin Ratio 0.9 (0.8-1.8); Bilirubin, Total 0.4 mg/dL (0.1-1.0); Bun/Creatinine Ratio 25.6 (12.0-20.0); Calcium, Blood 9.3 mg/dL (8.5-10.1); Creatinine, Blood 0.63 mg/dL (0.40-1.00); Globulin, Blood 3.9 g/dL (2.2-4.0); Potassium, Blood 4.5 mmol/L (3.5-5.5); Total Protein, Blood 7.6 g/dL (6.4-8.2)
== END 2024-07-11 11:01 | disposition home or self-care (01) ==
LOC: ATC 01:42
PROVIDERS: Hospitalist
DX: M86.142 Other acute osteomyelitis, left hand (principal); I10 Essential (primary) hypertension; Z88.1 Allergy status to other antibiotic agents; Z88.4 Allergy status to anesthetic agent
CPT/HCPCS: 80053; 85025; 96365; 96368; J0696; J0878

== ENCOUNTER 2024-07-12 00:32 | Day surgery (SDC) | payer OTHER ==
[2024-07-12] MEDS ORDERED: CefTRIAXone Sodium 2,000 MG in NS 100 ML IV SCH (01:00)
[2024-07-12] MEDS ORDERED: DAPTOmycin 500 MG in NS 50 ML IV SCH (06:00)
[2024-07-12 09:54] VITALS: BP 154/98
== END 2024-07-12 10:16 | disposition home or self-care (01) ==
LOC: ATC 00:32
DX: M86.142 Other acute osteomyelitis, left hand (principal); I10 Essential (primary) hypertension; Z88.1 Allergy status to other antibiotic agents; Z88.4 Allergy status to anesthetic agent
CPT/HCPCS: 96365; 96368; J0696; J0878

== ENCOUNTER 2024-07-13 00:45 | Day surgery (SDC) | payer OTHER ==
[2024-07-13] MEDS ORDERED: CefTRIAXone Sodium 2,000 MG in NS 100 ML IV SCH (06:00)
[2024-07-13] MEDS ORDERED: DAPTOmycin 500 MG in NS 50 ML IV SCH (06:00)
[2024-07-13 10:09] VITALS: BP 154/96
== END 2024-07-13 10:30 | disposition home or self-care (01) ==
LOC: ATC 00:45
DX: M86.142 Other acute osteomyelitis, left hand (principal); I10 Essential (primary) hypertension; Z88.8 Allergy status to other drugs, medicaments and biological substances; Z91.040 Latex allergy status
CPT/HCPCS: 96365; 96368; J0696; J0878

== ENCOUNTER 2024-07-14 02:26 | Day surgery (SDC) | payer OTHER ==
[~2024-07-14 02:26] MED LIST changes: +CefTRIAXone Sodium 2,000 MG in NS 100 ML IV SCH
[2024-07-14] MEDS ORDERED: DAPTOmycin 500 MG in NS 50 ML IV SCH (06:00)
[2024-07-14 10:39] VITALS: BP 149/103
== END 2024-07-14 10:57 | disposition home or self-care (01) ==
LOC: ATC 02:26
DX: M86.142 Other acute osteomyelitis, left hand (principal); I10 Essential (primary) hypertension; Z91.040 Latex allergy status; Z88.8 Allergy status to other drugs, medicaments and biological substances
CPT/HCPCS: 96365; 96368; J0696; J0878

== ENCOUNTER 2024-07-15 09:58 | Day surgery (SDC) | payer OTHER ==
[~2024-07-15 09:58] MED LIST changes: +DAPTOmycin 500 MG in NS 50 ML IV SCH
[2024-07-15 10:19] VITALS: BP 148/88
== END 2024-07-15 10:40 | disposition home or self-care (01) ==
LOC: ATC 09:58
DX: M86.142 Other acute osteomyelitis, left hand (principal); I10 Essential (primary) hypertension; Z88.1 Allergy status to other antibiotic agents; Z91.040 Latex allergy status
CPT/HCPCS: 96365; 96368; J0696; J0878

== ENCOUNTER 2024-07-16 01:03 | Day surgery (SDC) | payer OTHER ==
[~2024-07-16 01:03] MED LIST changes: -DAPTOmycin 500 MG in NS 50 ML IV SCH
[2024-07-16] MEDS ORDERED: DAPTOmycin 500 MG in NS 50 ML IV SCH (06:00)
[2024-07-16 10:08] VITALS: BP 134/88
== END 2024-07-16 10:29 | disposition home or self-care (01) ==
LOC: ATC 01:03
DX: M86.142 Other acute osteomyelitis, left hand (principal); I10 Essential (primary) hypertension; Z88.1 Allergy status to other antibiotic agents; Z91.040 Latex allergy status
CPT/HCPCS: 96365; 96368; J0696; J0878

== ENCOUNTER 2024-07-17 02:24 | Day surgery (SDC) | payer OTHER ==
[~2024-07-17 02:24] MED LIST changes: -CefTRIAXone Sodium 2,000 MG in NS 100 ML IV SCH
[2024-07-17] MEDS ORDERED: CefTRIAXone Sodium 2,000 MG in NS 100 ML IV SCH (06:00)
[2024-07-17] MEDS ORDERED: DAPTOmycin 500 MG in NS 50 ML IV SCH (06:00)
[2024-07-17 10:41] VITALS: BP 153/94
== END 2024-07-17 10:55 | disposition home or self-care (01) ==
LOC: ATC 02:24
DX: M86.142 Other acute osteomyelitis, left hand (principal); I10 Essential (primary) hypertension; E87.1 Hypo-osmolality and hyponatremia; Z88.8 Allergy status to other drugs, medicaments and biological substances; Z91.040 Latex allergy status
CPT/HCPCS: 96365; 96368; J0696; J0878

== ENCOUNTER 2024-07-18 03:13 | Day surgery (SDC) | payer OTHER ==
[~2024-07-18 03:13] MED LIST changes: +CefTRIAXone Sodium 2,000 MG in NS 100 ML IV SCH
[2024-07-18] MEDS ORDERED: DAPTOmycin 500 MG in NS 50 ML IV SCH (06:00)
[2024-07-18 09:15] VITALS: BP 143/99
[2024-07-18 10:03] LABS: BASOPHILS ABSOLUTE AUTO 0.09 K/mm3 (0.00-0.23); BASOPHILS PERCENT AUTO 2 % (0-2); EOSINOPHILS ABSOLUTE AUTO 0.35 K/mm3 (0.00-0.68); EOSINOPHILS PERCENT AUTO 6 % (0-6); Hematocrit 41.1 % (33.0-51.0); Hemoglobin 13.8 g/dL (11.5-16.0); IMMATURE GRAN ABSOLUTE AUTO 0.04 K/mm3 (0.00-0.10); IMMATURE GRAN PERCENT AUTO 1 % (0-1); LYMPHOCYTES ABSOLUTE AUTO 1.24 K/mm3 (0.84-5.20); LYMPHOCYTES PERCENT AUTO 21 % (21-46); MONOCYTES ABSOLUTE AUTO 0.59 K/mm3 (0.16-1.47); MONOCYTES PERCENT AUTO 10 % (4-13); Mean Corpuscular HGB 29.3 pg (26.0-34.0); Mean Corpuscular HGB Conc 33.6 g/dL (31.5-36.5); Mean Corpuscular Volume 87 fL (80-100); Mean Platelet Volume 10.3 fL (9.1-12.4); NEUTROPHILS ABSOLUTE AUTO 3.59 K/mm3 (1.96-9.15); NEUTROPHILS PERCENT AUTO 61 % (41-73); Platelet Count 205 K/mm3 (150-400); RDW Coefficient Variation 12.7 % (11.7-14.2); RDW Standard Deviation 40.7 fL (35.1-46.3); Red Blood Cell Count 4.71 M/mm3 (3.80-5.20)
[2024-07-18 10:32] LABS: Albumin, Blood 3.8 g/dL (3.4-5.0); Bilirubin, Total 0.6 mg/dL (0.1-1.0); Bun/Creatinine Ratio 28.7 (12.0-20.0); Calcium, Blood 9.7 mg/dL (8.5-10.1); Creatinine, Blood 0.63 mg/dL (0.40-1.00); Globulin, Blood 3.8 g/dL (2.2-4.0); Potassium, Blood 4.3 mmol/L (3.5-5.5); Total Protein, Blood 7.6 g/dL (6.4-8.2)
== END 2024-07-18 09:41 | disposition home or self-care (01) ==
LOC: ATC 03:13
PROVIDERS: Hospitalist
DX: M86.142 Other acute osteomyelitis, left hand (principal); I10 Essential (primary) hypertension; E87.1 Hypo-osmolality and hyponatremia; Z91.040 Latex allergy status; Z88.8 Allergy status to other drugs, medicaments and biological substances
CPT/HCPCS: 80053; 85025; 96365; 96368; J0696; J0878

== ENCOUNTER 2024-07-19 04:09 | Day surgery (SDC) | payer OTHER ==
[~2024-07-19 04:09] MED LIST changes: -CefTRIAXone Sodium 2,000 MG in NS 100 ML IV SCH
[2024-07-19] MEDS ORDERED: DAPTOmycin 500 MG in NS 50 ML IV SCH (06:00)
[2024-07-19] MEDS ORDERED: CefTRIAXone Sodium 2,000 MG in NS 100 ML IV SCH (06:00)
[2024-07-19 10:14] VITALS: BP 140/92
== END 2024-07-19 10:33 | disposition home or self-care (01) ==
LOC: ATC 04:09
DX: M86.142 Other acute osteomyelitis, left hand (principal); I10 Essential (primary) hypertension; Z91.040 Latex allergy status; Z88.1 Allergy status to other antibiotic agents
CPT/HCPCS: 96365; 96368; J0696; J0878

== ENCOUNTER 2024-07-20 03:57 | Day surgery (SDC) | payer OTHER ==
[~2024-07-20 03:57] MED LIST changes: +CefTRIAXone Sodium 2,000 MG in NS 100 ML IV SCH
[2024-07-20] MEDS ORDERED: DAPTOmycin 500 MG in NS 50 ML IV SCH (06:00)
[2024-07-20 10:11] VITALS: BP 154/99
== END 2024-07-20 10:33 | disposition home or self-care (01) ==
LOC: ATC 03:57
DX: M86.142 Other acute osteomyelitis, left hand (principal); I10 Essential (primary) hypertension; E87.1 Hypo-osmolality and hyponatremia; Z79.899 Other long term (current) drug therapy
CPT/HCPCS: 96365; 96368; J0696; J0878

== ENCOUNTER 2024-07-21 00:51 | Day surgery (SDC) | payer OTHER ==
[~2024-07-21 00:51] MED LIST changes: -CefTRIAXone Sodium 2,000 MG in NS 100 ML IV SCH
[2024-07-21] MEDS ORDERED: CefTRIAXone Sodium 2,000 MG in NS 100 ML IV SCH (01:00)
[2024-07-21] MEDS ORDERED: DAPTOmycin 500 MG in NS 50 ML IV SCH (06:00)
[2024-07-21 10:10] VITALS: BP 136/92
== END 2024-07-21 10:37 | disposition home or self-care (01) ==
LOC: ATC 00:51
DX: M86.142 Other acute osteomyelitis, left hand (principal); I10 Essential (primary) hypertension; Z88.1 Allergy status to other antibiotic agents; Z88.4 Allergy status to anesthetic agent; Z91.040 Latex allergy status
CPT/HCPCS: 96365; 96368; J0696; J0878

== ENCOUNTER 2024-07-22 01:24 | Day surgery (SDC) | payer OTHER ==
[2024-07-22] MEDS ORDERED: DAPTOmycin 500 MG in NS 50 ML IV SCH (06:00)
[2024-07-22] MEDS ORDERED: CefTRIAXone Sodium 2,000 MG in NS 100 ML IV SCH (06:00)
[2024-07-22 10:15] VITALS: BP 135/94
== END 2024-07-22 10:40 | disposition home or self-care (01) ==
LOC: ATC 01:24
DX: M86.142 Other acute osteomyelitis, left hand (principal); I10 Essential (primary) hypertension; Z88.1 Allergy status to other antibiotic agents; Z88.4 Allergy status to anesthetic agent
CPT/HCPCS: 96365; 96368; J0696; J0878

== ENCOUNTER 2024-07-23 02:05 | Day surgery (SDC) | payer OTHER ==
[2024-07-23] MEDS ORDERED: CefTRIAXone Sodium 2,000 MG in NS 100 ML IV SCH (06:00)
[2024-07-23] MEDS ORDERED: DAPTOmycin 500 MG in NS 50 ML IV SCH (06:00)
[2024-07-23 10:03] VITALS: BP 135/99
== END 2024-07-23 10:22 | disposition home or self-care (01) ==
LOC: ATC 02:05
DX: M86.142 Other acute osteomyelitis, left hand (principal); I10 Essential (primary) hypertension; E87.1 Hypo-osmolality and hyponatremia; Z88.8 Allergy status to other drugs, medicaments and biological substances; Z91.040 Latex allergy status
CPT/HCPCS: 96365; 96368; J0696; J0878

== ENCOUNTER 2024-07-24 04:11 | Day surgery (SDC) | payer OTHER ==
[~2024-07-24 04:11] MED LIST changes: +CefTRIAXone Sodium 2,000 MG in NS 100 ML IV SCH
[2024-07-24] MEDS ORDERED: DAPTOmycin 500 MG in NS 50 ML IV SCH (06:00)
[2024-07-24 09:35] VITALS: BP 139/97
== END 2024-07-24 10:01 | disposition home or self-care (01) ==
LOC: ATC 04:11
DX: M86.142 Other acute osteomyelitis, left hand (principal); I10 Essential (primary) hypertension; E87.1 Hypo-osmolality and hyponatremia; Z88.8 Allergy status to other drugs, medicaments and biological substances; Z91.040 Latex allergy status
CPT/HCPCS: 96365; 96368; J0696; J0878

== ENCOUNTER 2024-07-25 01:20 | Day surgery (SDC) | payer OTHER ==
[2024-07-25] MEDS ORDERED: DAPTOmycin 500 MG in NS 50 ML IV SCH (06:00)
[2024-07-25 10:30] VITALS: BP 1142/98
[2024-07-25 11:27] LABS: BASOPHILS ABSOLUTE AUTO 0.06 K/mm3 (0.00-0.23); BASOPHILS PERCENT AUTO 1 % (0-2); EOSINOPHILS ABSOLUTE AUTO 0.28 K/mm3 (0.00-0.68); EOSINOPHILS PERCENT AUTO 6 % (0-6); Hematocrit 43.1 % (33.0-51.0); IMMATURE GRAN ABSOLUTE AUTO 0.01 K/mm3 (0.00-0.10); IMMATURE GRAN PERCENT AUTO 0 % (0-1); LYMPHOCYTES ABSOLUTE AUTO 1.37 K/mm3 (0.84-5.20); LYMPHOCYTES PERCENT AUTO 27 % (21-46); MONOCYTES ABSOLUTE AUTO 0.57 K/mm3 (0.16-1.47); MONOCYTES PERCENT AUTO 11 % (4-13); Mean Corpuscular HGB 28.6 pg (26.0-34.0); Mean Corpuscular HGB Conc 32.5 g/dL (31.5-36.5); Mean Corpuscular Volume 88 fL (80-100); Mean Platelet Volume 9.9 fL (9.1-12.4); NEUTROPHILS ABSOLUTE AUTO 2.82 K/mm3 (1.96-9.15); NEUTROPHILS PERCENT AUTO 55 % (41-73); Platelet Count 247 K/mm3 (150-400); RDW Coefficient Variation 12.9 % (11.7-14.2); RDW Standard Deviation 41.8 fL (35.1-46.3); Red Blood Cell Count 4.89 M/mm3 (3.80-5.20); White Blood Cell Count 5.11 K/mm3 (4.00-11.30)
[2024-07-25 12:14] LABS: Albumin/Globulin Ratio 1.1 (0.8-1.8); Bilirubin, Total 0.6 mg/dL (0.1-1.0); Bun/Creatinine Ratio 22.1 (12.0-20.0); C-REACTIVE PROTEIN, EXT RANGE 0.311 mg/dL (0.000-0.300); Calcium, Blood 9.2 mg/dL (8.5-10.1); Creatinine, Blood 0.68 mg/dL (0.40-1.00); Globulin, Blood 3.8 g/dL (2.2-4.0); Potassium, Blood 4.4 mmol/L (3.5-5.5); Total Protein, Blood 7.8 g/dL (6.4-8.2)
== END 2024-07-25 10:58 | disposition home or self-care (01) ==
LOC: ATC 01:20
PROVIDERS: Hospitalist
DX: M86.142 Other acute osteomyelitis, left hand (principal); I10 Essential (primary) hypertension; Z88.8 Allergy status to other drugs, medicaments and biological substances; Z88.1 Allergy status to other antibiotic agents; Z91.040 Latex allergy status
CPT/HCPCS: 80053; 85025; 86140; 96365; 96368; J0696; J0878

== ENCOUNTER 2024-07-26 02:14 | Day surgery (SDC) | payer OTHER ==
[~2024-07-26 02:14] MED LIST changes: -CefTRIAXone Sodium 2,000 MG in NS 100 ML IV SCH
== END 2024-07-26 11:57 | disposition home or self-care (01) ==
LOC: ATC 02:14
DX: M86.142 Other acute osteomyelitis, left hand (principal); I10 Essential (primary) hypertension; E87.1 Hypo-osmolality and hyponatremia; Z88.1 Allergy status to other antibiotic agents; Z88.4 Allergy status to anesthetic agent; Z91.040 Latex allergy status
CPT/HCPCS: 99211